=== PATIENT | male | born 1965 | race Caucasian/White ===

== ENCOUNTER 2017-10-15 20:01 | Emergency (ER) | payer OTHER ==
[~2017-10-15] VITALS: Ht 167.6 cm; Wt 61.4 kg
[2017-10-15 20:08] VITALS: BP 163/86; Ht 167.6 cm; Wt 61.4 kg
[2017-10-15] MEDS ORDERED: PRINIVIL20 MG PO (20:10)
[2017-10-15 20:43] LABS: WBC 12.2 10x3/uL (4.8-10.8)
[2017-10-15 20:44] LABS: RBC 5.06 10x6/uL (4.20-6.10)
[2017-10-15 20:46] LABS: HEMATOCRIT 46.3 % (42.0-54.0); HEMOGLOBIN 15.6 g/dL (13.5-17.5); LYMPHOCYTES 42.8 % (15-50); MCH 30.8 pg (26.0-34.0); MCHC 33.7 g/dL (31.0-37.0); MCV 91.5 fL (80.0-100.0); MEAN PLATELET VOLUME 9.5 fL (7.4-10.4); NEUTROPHILS 43.8 % (40-80); PLATELET COUNT 592 10x3/uL (130-400); RDW 13.7 % (11.5-14.5)
[2017-10-15 21:12] LABS: ALBUMIN 3.7 g/dL (3.4-5.0); ALKALINE PHOSPHATASE 86 U/L (46-116); ALT (SGPT) 65 U/L (10-68); BILIRUBIN - TOTAL 0.19 mg/dL (0.2-1.3); CALC OSMOLALITY 279 mosm/kg (275-300); CALCIUM 9.3 mg/dL (8.5-10.1); CARBON DIOXIDE 30.3 mmol/L (21.0-32.0); CHLORIDE - SERUM 104 mmol/L (98-107); GLUCOSE 91 mg/dL (74-106); PROTEIN - SERUM 8.5 g/dL (6.4-8.2); SODIUM 140 mmol/L (136-145); UREA NITROGEN 15 mg/dL (7-18); eGFR NON AFRICAN AMERICAN 83 mL/min (90-120)
[2017-10-15 21:13] LABS: BASOPHILS 1.8 % (0-2); EOSINOPHILS 2.5 % (0-7); IMMATURE GRANULOCYTES 0.3 % (0-5); MONOCYTES 8.8 % (2-11)
[2017-10-15 21:16] LABS: PROTIME 12.8 SECONDS (11.6-15.0)
[2017-10-15] MEDS ORDERED: ARTHROTEC EC 71 EACH PO (23:45)
== END 2017-10-15 23:00 | disposition home or self-care (01) ==
LOC: D.ER 20:01
PROVIDERS: Emergency Medicine
DX: K59.00 Constipation, unspecified (principal); R79.89 Other specified abnormal findings of blood chemistry; M17.0 Bilateral primary osteoarthritis of knee; I10 Essential (primary) hypertension